=== PATIENT | male | born 1980 | race Caucasian/White ===

== ENCOUNTER 2018-01-29 14:02 | Emergency (ER) | payer MEDICAID ==
[~2018-01-29] VITALS: Ht 172.7 cm; Wt 63.6 kg
[2018-01-29] MEDS ORDERED: ketorolac trometh inj. 60 MG/2 ML VIAL IM ONE (14:25)
[2018-01-29 14:26] VITALS: BP 134/82
[2018-01-29] MEDS ORDERED: CYCL-1 PO (14:26)
== END 2018-01-29 14:56 | disposition home or self-care (01) ==
LOC: ER 14:02
DX: M54.9 Dorsalgia, unspecified (principal); M62.838 Other muscle spasm; G89.29 Other chronic pain; Z79.899 Other long term (current) drug therapy
CPT/HCPCS: 96372; 99283; J1885